=== PATIENT | female | born 1950 | race African-American/Black ===

== ENCOUNTER 2017-06-15 15:42 | Emergency (ER) | payer OTHER, BC ==
[~2017-06-15] VITALS: Ht 157.5 cm; Wt 93.4 kg
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
[~2017-06-15 15:42] MED LIST: ASPIRIN81 MG PO; LISINOPRIL-HCTZ1 T16 PO
== END 2017-06-15 19:08 | disposition home or self-care (01) ==
LOC: CED 15:42 → CFTX 15:42
DX: S20.211A Contusion of right front wall of thorax, initial encounter (principal); S50.11XA Contusion of right forearm, initial encounter; J98.01 Acute bronchospasm; J45.909 Unspecified asthma, uncomplicated; I10 Essential (primary) hypertension; Z88.0 Allergy status to penicillin; Z79.82 Long term (current) use of aspirin; Z79.899 Other long term (current) drug therapy; V43.52XA Car driver injured in collision with other type car in traffic accident, initial encounter; W22.11XA Striking against or struck by driver side automobile airbag, initial encounter
CPT/HCPCS: 71020; 73090; 94640; 99285